=== PATIENT | male | born 1995 | race Caucasian/White ===

== ENCOUNTER 2020-05-01 08:15 | Outpatient (REF) | payer OTHER, SELFPAY | END 2020-05-01 08:16 | disposition home or self-care (01) | LOC: HO.LAB 08:15 | PROVIDERS: PCP Nurse Practitioner Family; Visit Provider Internal Medicine | DX: Z20.828 Contact with and (suspected) exposure to other viral communicable diseases (principal) | CPT/HCPCS: 36415; 87635 ==

== ENCOUNTER 2020-06-11 17:45 | Outpatient (REF) | payer OTHER, SELFPAY | END 2020-06-11 17:46 | disposition home or self-care (01) | LOC: HO.LAB 17:45 | PROVIDERS: PCP Nurse Practitioner Family; Visit Provider Internal Medicine | DX: Z20.828 Contact with and (suspected) exposure to other viral communicable diseases (principal) | CPT/HCPCS: C9803; U0003 ==

== ENCOUNTER 2020-07-30 09:31 | Outpatient (REF) | payer OTHER, SELFPAY ==
[2020-07-30 11:58] LABS: Alanine Aminotransferase 19 U/L (0-40); Albumin Level 4.6 g/dL (3.5-5.0); Alkaline Phosphatase 78 U/L (39-117); Anion Gap 11 (12-20); Aspartate Amino Transferase 15 U/L (5-37); Bilirubin Total 0.7 mg/dL (0.0-1.0); Blood Urea Nitrogen 13 mg/dL (9-16); Calcium 9.3 mg/dL (8.4-10.2); Carbon Dioxide 27 mmol/L (22-29); Chloride 104 mmol/L (96-108); Cholesterol 199 mg/dL; Estimated Glomerular Filt Rate > 60; Glucose Fasting 97 mg/dL (60-99); HDL Cholesterol 50 mg/dL; LDL Cholesterol Calculated 123 mg/dl; Potassium 4.2 mmol/l (3.3-5.1); Sodium 138 mmol/L (135-145); Total Protein 7.3 g/dL (6.5-8.0); Triglycerides 131 mg/dL
[2020-07-30 12:02] LABS: TSH reflex Free T4 1.84 mIU/mL (0.32-4.0)
== END 2020-07-30 09:32 | disposition home or self-care (01) ==
LOC: HO.HMGCLDS 09:31
PROVIDERS: PCP Nurse Practitioner Family; Visit Provider Nurse Practitioner Family
DX: Z00.00 Encounter for general adult medical examination without abnormal findings (principal)
CPT/HCPCS: 36415; 80053; 80061; 84443

== ENCOUNTER 2020-08-15 16:21 | Outpatient (REF) | payer OTHER, SELFPAY | END 2020-08-15 16:22 | disposition home or self-care (01) | LOC: HO.LAB 16:21 | PROVIDERS: Visit Provider Internal Medicine | DX: Z20.822 Contact with and (suspected) exposure to COVID-19 (principal) | CPT/HCPCS: 36415; C9803; U0003 ==

== ENCOUNTER 2020-08-24 14:00 | Outpatient (RCR) | payer OTHER, SELFPAY ==
--- NOTE | 2020-08-24 14:57 | MHC.PT.DC ---
[facility] [place] Office [place] Office [place] Office [address] Fernie Woodard [address] [phone] F: [phone] F: [phone] F: [phone] F: [phone] Physical Therapy Discharge Report Diagnosis: Acute R sh pain Date of Surgery: Date of Evaluation: 03/16/20 Date of Discharge: 08/24/20 Treatments to Date: 21 Cancellations to Date: 0 No Shows to Date: 0 Discharge Status: Achieved Goals Improved Function Independent with HEP Discharge Summary: Patient demos good/normal ROM and improved strength. States that he understands all of his exercises well and does not have questions. Pain has improved and he no longer has tenderness or pain at thoracic spine. He has a good HEP and was educated on continuing this for maintenance as well as general conditioning. He is ready for DC and I in program. DC to HEP at this time. Electronically signed by: Sarahi Webb PT Please sign and return to therapist. Thank you for your referral.
== END 2020-08-24 16:14 | disposition home or self-care (01) ==
LOC: HO.PTCHIC 14:00
PROVIDERS: PCP Nurse Practitioner Family; Visit Provider Nurse Practitioner Family
DX: M25.511 Pain in right shoulder (principal)
CPT/HCPCS: 97110; 97140

== ENCOUNTER → 2020-10-18 10:09 | Outpatient (BNVA) | payer OTHER, SELFPAY | PROVIDERS: Visit Provider Orthopaedic Surgery | DX: M76.52 Patellar tendinitis, left knee (principal); M76.32 Iliotibial band syndrome, left leg | CPT/HCPCS: 99212 ==

== ENCOUNTER → 2020-11-16 09:01 | Outpatient (BNVA) | payer OTHER, SELFPAY | PROVIDERS: PCP Nurse Practitioner Family; Visit Provider Orthopaedic Surgery | DX: M76.52 Patellar tendinitis, left knee (principal); M76.32 Iliotibial band syndrome, left leg | CPT/HCPCS: 99212 ==

== ENCOUNTER 2020-12-11 11:00 | Outpatient (RCR) | payer OTHER, SELFPAY ==
--- NOTE | 2020-09-13 12:14 | MHC.PT.EP ---
[facility] [place] Office [place] Office [place] Office [address] Fernie Woodard [address] [phone] F: [phone] F: [phone] F: [phone] F: [phone] Physical Therapy Plan of Care Date of Evaluation: 09/13/20 Date of Surgery: Diagnosis: LEFT PATELLAR TENDONITIS, UNSPEC INTERNAL DERANGEMENT LT KNEE Assessment: 25 YO MALE REF TO PT FOR LEFT PATELLAR TENDONITIS AND INTERNAL DERANGEMENT, INITIAL PAIN S/P FALL AT WORK IN APR 2020 AND MORE RECENT EXACERBATION WHILE RETURNING TO RUNNING, INCR DISTANCE AND SPEED-Pt CURRENTLY ON LIGHT DUTY AT WORK. HE REPORTS PAIN IS IN LEFT PES ANSERINE/ LEFT INFRAPATELLA AND LEFT POPLITEAL SPACE FEELS SWOLLEN. Pt HAS DECR OLIVIA TO RUNNING/JOGGING AND PROLONGED SITTING. HE HAS DECR AROM LEFT KNEE, DECR FLEXIB IN HS/ HIP ROTAT, (+) INFRAPAT FATPAD IRRIT AND TIGHT LATERAL RETINACULAR TISSUES, (+) PELVIC ASYMM W LLI, AND WEAKNESS IN PROX LEs AND QUADS. Pt IS A GOOD PT CANDIDATE TO ADDRESS PAIN, SELF-SX MGMT TECHN, IMPROVE LEs STRENGTH, FLEXIB, AND LEs MECHANICS , AND SELF-TAPE NEEDED. Frequency and Duration: The patient will be seen 2x WK x 5 WKS Short Term Goals: Pt REPORT DECR Lt PFP AND POPLITEAL PAIN TO 2-3/10 IN 2 WKS IMPROVE HIP /HS FLEXIB GISEL AND LEFT TERMINAL EXTEN IN 2 WKS ADDRESS PELVIC ASYMM AND EASE LLIO EFFECT ON LEFT LE IN 2 WEEKS Ledge Man Goals: Pt INDEP W HEP AND SELF-SX MGMT TECHN (SELF TAPING PRN) IN 5 WKS Pt RESUME REG ADLs- RESUME RUNNING, EVIDENT W IMPROVED LEFT SCORE BY 15 POINTS (58/80 AT EVAL) Treatment Plan: Modalities to reduce pain, spasms and effusion. Manual therapy to restore motion and function. Therapeutic exercise to improve strength and flexibility. Neuromuscular re-education for posture and balance. Therapeutic activities to return to functional activities of daily living. Electronically signed by: Janet Couch, PT Please sign and return to therapist. Thank you for your referral.
--- NOTE | 2020-12-11 12:19 | MHC.PT.DC ---
[facility] [place] Office [place] Office [place] Office [address] Fernie Woodard [address] [phone] F: [phone] F: [phone] F: [phone] F: [phone] Physical Therapy Discharge Report Diagnosis: LEFT PATELLAR TENDONITIS, UNSPEC INTERNAL DERANGEMENT LT KNEE Date of Surgery: Date of Evaluation: 09/13/20 Date of Discharge: 12/11/20 Treatments to Date: 22 Cancellations to Date: 0 No Shows to Date: 0 Discharge Status: Achieved Goals Improved Function Independent with HEP Discharge Summary: Pt HAS PROGRESSED NICELY IN PT- HIS PAIN HAS RESOLVED, HE IS INDEP WITH HEP; DISPLAYS NORMAL LEFT LE MOBILITY AND STRENGTH. HIS LEFT SCORE HAS IMPROVED FROM 58/80 AT EVAL TO 74/80 AT D/C. Electronically signed by: Janet Couch,PT Please sign and return to therapist. Thank you for your referral.
== END 2020-12-11 12:21 | disposition other institution (70) ==
LOC: HO.PTCHIC 11:00
PROVIDERS: PCP Nurse Practitioner Family; Visit Provider Orthopaedic Surgery
DX: M23.92 Unspecified internal derangement of left knee (principal); M76.52 Patellar tendinitis, left knee
CPT/HCPCS: 97110; 97112; 97140; 97161; 97530

== ENCOUNTER → 2020-12-27 09:43 | Outpatient (BNVA) | payer OTHER, SELFPAY | PROVIDERS: PCP Nurse Practitioner Family; Visit Provider Orthopaedic Surgery | DX: M23.92 Unspecified internal derangement of left knee (principal); M76.52 Patellar tendinitis, left knee | CPT/HCPCS: 99212 ==

== ENCOUNTER 2021-01-16 14:22 | Outpatient (REF) | payer OTHER, SELFPAY ==
--- NOTE | ~2021-01-16 | XR_ITS ---
EXAMINATION: RIGHT FINGERS, RIGHT RIBS AND CHEST. CLINICAL INFORMATION: Pleural diarrhea. Right finger pain. COMPARISON: None TECHNIQUE: Chest 2 views. Right RIBS 3 views. Right fingers 3 views. FINDINGS: CHEST: Both lungs are fairly well-expanded and clear. The heart size and pulmonary vascularity is normal. There is mild dextroscoliosis dorsal spine. No lytic process. RIGHT RIBS: There is no visible rib right rib fracture or bony abnormality. The soft tissues are normal. RIGHT FINGERS: There is no visible fracture, dislocation or subluxation seen. The soft tissues are normal. XR/XR finger RT min 2V IMPRESSION: Unremarkable chest exam. Unremarkable right rib exam. Unremarkable right finger exam.
--- NOTE | ~2021-01-16 | XR_ITS ---
EXAMINATION: RIGHT FINGERS, RIGHT RIBS AND CHEST. CLINICAL INFORMATION: Pleural diarrhea. Right finger pain. COMPARISON: None TECHNIQUE: Chest 2 views. Right RIBS 3 views. Right fingers 3 views. FINDINGS: CHEST: Both lungs are fairly well-expanded and clear. The heart size and pulmonary vascularity is normal. There is mild dextroscoliosis dorsal spine. No lytic process. RIGHT RIBS: There is no visible rib right rib fracture or bony abnormality. The soft tissues are normal. RIGHT FINGERS: There is no visible fracture, dislocation or subluxation seen. The soft tissues are normal. XR/XR ribs RT 2V IMPRESSION: Unremarkable chest exam. Unremarkable right rib exam. Unremarkable right finger exam.
--- NOTE | ~2021-01-16 | XR_ITS ---
EXAMINATION: RIGHT FINGERS, RIGHT RIBS AND CHEST. CLINICAL INFORMATION: Pleural diarrhea. Right finger pain. COMPARISON: None TECHNIQUE: Chest 2 views. Right RIBS 3 views. Right fingers 3 views. FINDINGS: CHEST: Both lungs are fairly well-expanded and clear. The heart size and pulmonary vascularity is normal. There is mild dextroscoliosis dorsal spine. No lytic process. RIGHT RIBS: There is no visible rib right rib fracture or bony abnormality. The soft tissues are normal. RIGHT FINGERS: There is no visible fracture, dislocation or subluxation seen. The soft tissues are normal. XR/XR chest 2V IMPRESSION: Unremarkable chest exam. Unremarkable right rib exam. Unremarkable right finger exam.
== END 2021-01-16 14:23 | disposition home or self-care (01) ==
LOC: HO.HMGCX 14:22
PROVIDERS: PCP Nurse Practitioner Family; Visit Provider Nurse Practitioner Family
DX: M79.644 Pain in right finger(s) (principal); R07.81 Pleurodynia
CPT/HCPCS: 71046; 71100; 73140

== ENCOUNTER 2021-01-17 07:31 | Outpatient (REF) | payer OTHER, SELFPAY ==
[2021-01-17 11:52] LABS: Alanine Aminotransferase 18 U/L (0-40); Albumin Level 4.5 g/dL (3.5-5.0); Alkaline Phosphatase 69 U/L (39-117); Anion Gap 13 (12-20); Aspartate Amino Transferase 18 U/L (5-37); Bilirubin Total 0.8 mg/dL (0.0-1.0); Blood Urea Nitrogen 14 mg/dL (9-16); Calcium 9.6 mg/dL (8.4-10.2); Carbon Dioxide 24 mmol/L (22-29); Chloride 105 mmol/L (96-108); Estimated Glomerular Filt Rate > 60; Glucose Random 92 mg/dL (60-115); Potassium 4.2 mmol/L (3.3-5.1); Sodium 138 mmol/L (135-145); Total Protein 7.3 g/dL (6.5-8.0)
[2021-01-22 11:42] LABS: Testosterone, Free 138.6 pg/mL (35.0-155.0); Testosterone, Total 478 ng/dL (250-1100)
== END 2021-01-17 07:32 | disposition home or self-care (01) ==
LOC: HO.HMGCLDS 07:31
PROVIDERS: PCP Nurse Practitioner Family; Visit Provider Nurse Practitioner Family
DX: N52.9 Male erectile dysfunction, unspecified (principal); R07.81 Pleurodynia
CPT/HCPCS: 36415; 80053; 84402; 84403

== ENCOUNTER 2021-03-28 07:34 | Outpatient (REF) | payer OTHER, SELFPAY ==
[2021-03-28 11:22] LABS: Glucose Urine UA NEG (NEG); Leukocyte Esterase Urine NEG (NEG); Nitrite Urine NEG (NEG); Specific Gravity - Urine >= 1.030 (1.005-1.025); Urine Blood NEG (NEG); Urine Ketones NEG (NEG); Urine Protein TRACE MG/DL (NEG-TRACE)
[2021-03-28 11:24] LABS: Appearance Urine TURBID; Color Urine YELLOW
[2021-03-28 12:01] LABS: Alanine Aminotransferase 26 U/L (0-40); Albumin Level 4.6 g/dL (3.5-5.0); Alkaline Phosphatase 68 U/L (39-117); Anion Gap 13 (12-20); Aspartate Amino Transferase 19 U/L (5-37); Bilirubin Total 0.7 mg/dL (0.0-1.0); Blood Urea Nitrogen 13 mg/dL (9-16); Calcium 10.1 mg/dL (8.4-10.2); Carbon Dioxide 26 mmol/L (22-29); Chloride 105 mmol/L (96-108); Cholesterol 175 mg/dL; Estimated Glomerular Filt Rate > 60; Glucose Fasting 89 mg/dL (60-99); HDL Cholesterol 39 mg/dL; LDL Cholesterol Calculated 114 mg/dl; Potassium 4.4 mmol/L (3.3-5.1); Sodium 140 mmol/L (135-145); Total Protein 7.2 g/dL (6.5-8.0); Triglycerides 112 mg/dL
[2021-03-28 12:07] LABS: TSH reflex Free T4 1.19 uIU/mL (0.32-4.0)
== END 2021-03-28 07:35 | disposition home or self-care (01) ==
LOC: HO.HMGCLDS 07:34
PROVIDERS: PCP Nurse Practitioner Family; Visit Provider Nurse Practitioner Family
DX: Z00.00 Encounter for general adult medical examination without abnormal findings (principal)
CPT/HCPCS: 36415; 80053; 80061; 81003; 84443